=== PATIENT | male | born 1950 | race Caucasian/White ===

== ENCOUNTER → 2019-11-08 | Outpatient (CLI) | payer OTHER ==
[2019-11-08 14:58] LABS: Basophils % (A) 0 %; Eosinophils # (A) 0.5 k/uL (0-0.7); Eosinophils % (A) 6 %; HCT 44.2 % (39.0-53.0); HGB 15.1 gm/dL (13.0-17.5); Lymphocytes # (A) 1.8 k/uL (1.0-4.8); Lymphocytes % (A) 22 %; MCH 32.6 pg (25.0-35.0); MCHC 34.2 g/dL (31.0-37.0); MCV 95.2 fL (80.0-100.0); Mean Platelet Volume 8.7; Monocytes # (A) 0.4 k/uL (0-1.0); Monocytes % (A) 5 %; Neutrophils # (A) 5.5 k/uL (1.3-7.7); Neutrophils % (A) 66 %; Platelet Count 275 k/uL (150-450); RBC 4.64 m/uL (4.30-5.90); RDW 12.6 % (11.5-15.5); WBC 8.4 k/uL (3.8-10.6)
[2019-11-08 15:52] LABS: Erythrocyte Sedimentation Rate 8 mm/hr (0-15)
== END | disposition home or self-care (01) ==
LOC: LABWHC1 13:23
PROVIDERS: ATTEND Ophthalmology
DX: G45.3 Amaurosis fugax (principal)
CPT/HCPCS: 36415; 85025; 85652; 86140

== ENCOUNTER → 2024-01-30 | Outpatient (CLI) | payer OTHER ==
[2024-01-30 13:55] LABS: African American GFR (CKD) 64 (>60 ml/min/1.73 sqM); Blood Urea Nitrogen 21 mg/dL (9-20); Non-African American GFR(CKD) 55 (>60 ml/min/1.73 sqM)
--- NOTE | 2024-01-30 21:34 | CT ---
EXAMINATION TYPE: CT angio neck DATE OF EXAM: 01/30/2024 4:54 PM CLINICAL INDICATION:Male, 73 years old with history of I65.23 OCCLUSION AND STENOSIS OF BILATERAL CAR OTID; left carotid stenosis from radiation therapy COMPARISON: None TECHNIQUE: Axially acquired helical CT Angiogram of the Neck was obtained with and without contrast. Axial images are supplemented with coronal and sagittal MIP reconstructions. 3D reconstructions were also performed and were post-processed at an independent workstation. Estimated carotid stenosis was calculated using the NASCET criteria. CT DLP: 342.7 mGycm, Automated exposure control for dose reduction was used. Contrast used:65 mL of Isovue 370 with IV Contrast, Oral contrast used: , None. FINDINGS: CTA NECK: Right Carotid System: There is occlusion of the right common carotid artery at the origin with reconstitution upstream. The re is a diminutive caliber of the right common carotid artery. Right internal carotid artery is dimin utive in size and small caliber. Left carotid System: Left common carotid artery is patent. There is no significant stenosis at the bifurcation. Just after the bifurcation the internal carotid artery and straight greater than 70% stenosis which extends jeff roximately 11 mm in length where it gradually widens to normal caliber. The remainder of the internal carotid artery and the left is patent. Vertebral arteries are patent without evidence hemodynamically significant stenosis. There is slight dominance of the left vertebral artery compared to the right. There is a three-vessel aortic arch. The origins of the great vessels are patent. No evidence of hemo dynamically significant stenosis. Upper thorax: IMPRESSION: 1. Occlusion of the right common carotid artery at its origin with a diminutive suspected back fill of contrast through the [place]. Correlate with Doppler ultrasound. 2. Greater than 70% stenosis of the proximal left internal carotid artery.
== END | disposition home or self-care (01) ==
LOC: RADCTMAIN 13:11
PROVIDERS: ATTEND Surgery
DX: I65.23 Occlusion and stenosis of bilateral carotid arteries (principal)
CPT/HCPCS: 82565; 84520; 70498; 36415; Q9967

== ENCOUNTER 2024-03-24 05:38 | Inpatient (IN) | payer OTHER ==
[2024-03-24] MEDS ORDERED: CLOPIDOGREL 75 MG TAB PO PRN (05:57)
[2024-03-24] MEDS ORDERED: NITROGLYCERIN SL TABS 0.4 MG TAB SUBLINGUAL PRN (05:57)
[2024-03-24] MEDS: SODIUM CHLORIDE 0.9% 1,000 ML IV ONE ×2 (06:20→09:08)
[2024-03-24 06:42] LABS: Basophils % (A) 0 %; Eosinophils # (A) 0.7 k/uL (0-0.7); Eosinophils % (A) 8 %; HCT 44.9 % (39.0-53.0); HGB 14.7 gm/dL (13.0-17.5); Lymphocytes # (A) 1.8 k/uL (1.0-4.8); Lymphocytes % (A) 18 %; MCH 32.3 pg (25.0-35.0); MCHC 32.9 g/dL (31.0-37.0); MCV 98.4 fL (80.0-100.0); Mean Platelet Volume 8.1; Monocytes # (A) 0.6 k/uL (0-1.0); Monocytes % (A) 7 %; Neutrophils # (A) 6.2 k/uL (1.3-7.7); Neutrophils % (A) 65 %; Platelet Count 322 k/uL (150-450); RBC 4.56 m/uL (4.30-5.90); WBC 9.7 k/uL (3.8-10.6)
[2024-03-24 06:51] LABS: African American GFR (CKD) 62 (>60 ml/min/1.73 sqM); Anion Gap 7 mmol/L; Blood Urea Nitrogen 19 mg/dL (9-20); Calcium 9.7 mg/dL (8.4-10.2); Carbon Dioxide 27 mmol/L (22-30); Chloride 105 mmol/L (98-107); Glucose 110 mg/dL (74-99); Non-African American GFR(CKD) 54 (>60 ml/min/1.73 sqM); Potassium 4.1 mmol/L (3.5-5.1); Sodium 139 mmol/L (137-145)
[2024-03-24] MEDS ORDERED: ASPIRIN 81 MG PO PRN (07:00)
[2024-03-24] MEDS ORDERED: HYDROmorphone 0.5 MG/0.5 ML SYRINGE IVP PRN (07:00)
[2024-03-24] MEDS ORDERED: LIDOCAINE 1% INJ 10MG/ML (20 ML MDV) ONE (07:48)
[2024-03-24] MEDS: THROMBIN (BOVINE) 5,000 UNIT VIAL MISCELLANE ONE (08:11)
[2024-03-24] MEDS: LIDOCAINE 1% INJ 10MG/ML (20 ML MDV) SQ ONE (08:11)
[2024-03-24] MEDS: ceFAZolin 2 GM in SODIUM CHLORIDE 0.9% 500 ML 500 ML IRRIGATION PRN (08:20)
[2024-03-24] MEDS: HEPARIN SODIUM,PORCINE 10,000 UNIT in SODIUM CHLORIDE 0.9% 1,000 ML IRRIGATION ONE (08:21)
[2024-03-24] MEDS: IOPAMIDOL-250 100ML BTL INTRAARTER ONE (08:55)
[2024-03-24] MEDS ORDERED: RX INFO: IV CONTRAST WAS GIVEN 1 EACH MISC MISCELLANE PRN (09:00)
[2024-03-24] MEDS ORDERED: ATROPINE SULFATE 0.1 MG/ML 10ML SYRINGE IV PRN (09:15)
[2024-03-24] MEDS ORDERED: MAG HYDROX/AL HYDROX/SIMETH 30 ML CUP PO PRN (09:15)
--- NOTE | 2024-03-24 09:15 | P.OP ---
Date of Procedure: 03/24/24 Description of Procedure: Preoperative diagnosis: High-grade left internal carotid artery stenosis, previous head and neck radiation Postoperative diagnosis: Same Procedure: Left transcarotid artery revascularization with stenting. Right common femoral vein central venous catheter placement under ultrasound guidance Surgeon: Remedios Ann DO [employer] Therapist: Toney Jones Anesthesia: Conscious sedation Complications: None Condition: Stable Flow reversal time: 7 minutes Lesion length: 20 mm Indication for procedure: Patient is a 73-year-old male with high-grade left internal carotid artery occlusion, previous neck radiation as well as contralateral occlusion who presents for transcarotid artery stenting. Operative narrative: After written and informed consent was obtained the patient risks benefits and competitions were described the patient was brought to the [facility] and laid in a supine position. The area of the neck and groins were prepped and draped in usual sterile fashion after appropriate anesthetic was performed per the anesthesiologist. A timeout was performed in normal fashion and antibiotics were administered prior to incision. Utilizing ultrasound the left common carotid artery was located and a transverse incision was created overlying this area after proper anesthetization. Dissection was carried between the sternocleidomastoid musculature down to the carotid sheath. The sheath was then incised and the common carotid artery was located and dissected free in a circumferential manner and controlled with umbilical tape. Once controlled, attention was placed down to the common femoral vein and utilizing ultrasound the vein was cannulated and the 8-Bangladeshi sheath was placed in normal fashion. Attention was then placed back to the carotid artery and the patient was administered heparin and followed with ACTs and redosed as needed for ACT above 250. A pursestring suture was then placed at the common carotid artery with 5-0 Prolene and utilizing a micropuncture needle the common carotid artery was accessed and wire was placed followed by a 4-Bangladeshi sheath. Carotid angiogram was then obtained demonstrating significant stenosis in the internal carotid artery. Stiff wire was then placed followed by the 8 [place] sheath. Flow reversal was then established with the enroute PROBATE PARALEGAL system after patient's blood pressure was increased to above 160, heart rate above 60 and ACT above 250. 014 wire was then placed across the lesion followed by a 5x30 mm Sapp balloon and balloon angioplasty was performed followed by an 8x40 mm [place] stent. Postdilatation was not performed and final angiogram was obtained demonstrating complete resolution of the stenosis. All guidewires and catheters were removed and the sheath was removed and the arteriotomy was secured with the previously placed pursestring suture. Hemostasis was assured with Gelfoam and thrombin. The area was irrigated and closed. The platysma was closed with 3-0 Vicryl. The skin was closed with running 4-0 Monocryl in subcuticular fashionThe femoral sheath was also removed and pressure was held for hemostasis. The patient all procedure well and was moving all extremities and following commands. The patient was then sent to PACU for recovery.
[2024-03-24] MEDS: PHENYLEPHRINE-0.9% NACL SYG 1,000 MCG/10 ML SYRINGE IVP ONE (09:25)
[2024-03-24] MEDS: ALBUMIN HUMAN 5% (12.5gm) 250 ML BOTTLE IVPB ONE ×2 (09:48→10:44)
[2024-03-24] MEDS ORDERED: LORazepam 1 MG TAB PO PRN ×3 (12:51)
[2024-03-24] MEDS ORDERED: LORazepam 0.5 MG TAB PO PRN (12:51)
--- NOTE | 2024-03-24 13:02 | IR ---
EXAMINATION TYPE: IR stent intravas non coronary DATE OF EXAM: 03/24/2024 FLUOROSCOPY left carotid stent, 2.2min fluoro, 5.37Fmsg6. 127 images submitted.
--- NOTE | 2024-03-24 15:22 | P.CONS ---
History of Present Illness - Reason for Consult Consult date: 03/24/24 HTN Requesting physician: Remedios Ann - History of Present Illness Patient is a 73-year-old male with history of hypertension, carotid artery disease, and dyslipidemia who presented for left transcarotid artery revascularization with stenting. He tolerated the procedure well without any immediate postoperative complications. Patient seen and examined at bedside. He currently feels slightly lightheaded. He denies any chest pain, shortness of breath, nausea, vomiting. He denies any recent cough, cold, fever, flu. He has no other complaints currently. Vital signs reviewed General: nontoxic, no distress, appears at stated age Derm: warm, dry Eyes: EOMI, no lid lag, anicteric sclera ENT: Nose and ears atraumatic, dressing in place over left neck Cardiovascular: S1S2 reg, no murmur, no edema Lungs: clear to auscultation bilateral, no rhonchi, no rales, no wheeze, no accessory muscle use Abdominal: soft, nontender to palpation, no guarding Ext: no gross muscle atrophy, no contractures Neuro: CN II-XII grossly intact, No focal neuro deficits Psych: Alert, oriented, appropriate affect Assessment/Plan: 73-year-old male status post TCAR Carotid arterial disease -Aspirin 81 mg daily, Plavix 75 mg daily -Resume patient's Lipitor 80 mg daily Hypertension -Blood pressure parameters 1 30-1 80 systolic. Patient is currently within those parameters. Will continue to monitor. Resume lisinopril 20 mg daily in AM. If blood pressure elevates would give dose now. ETOH use - patient states he only drinks a few times a month - will monitor closely for signs of withdrawal - Ativan PO with dosing per CIWA scale, monitor for sedation - Thiamine 100 mg daily - Folic acid 1 mg daily Imaging: None new Data Review: Preoperative blood work reviewed CBC and basic metabolic profile which show a creatinine of 1.3 (1.26 1-month earlier) Thank you for allowing us to participate in the care of this pleasant patient. Do not hesitate to contact us with questions. Someone can be reached from the [facility] hospitalist group all hours of the day at [phone] or via [employer]. This dictation was prepared using On[employer] voice recognition software. Though every attempt is made to correct errors during dictation some may still exist. Past Medical History Past Medical History: Cancer, Eye Disorder, Hyperlipidemia, Hypertension Additional Past Medical History / Comment(s): carotid stenosis History of Any Multi-Drug Resistant Organisms: None Reported Past Surgical History: Hernia Repair Additional Past Surgical History / Comment(s): neck surgery, cut out cancer, cataracts 2021, colonscopy 01/2024, Past Anesthesia/Blood Transfusion Reactions: No Reported Reaction Smoking Status: Former smoker Past Alcohol Use History: Occasional - Past Family History Father Family Medical History: Neurologic Disorder Mother Family Medical History: Cancer Medications and Allergies Home Medications Medication Instructions Recorded Confirmed Type Aspirin 81 mg PO DAILY 03/22/24 03/24/24 History Atorvastatin [Lipitor] 80 mg PO DAILY 03/22/24 03/24/24 History Cholecalciferol (Vitamin D3) 50 mcg PO DAILY 03/22/24 03/24/24 History [Vitamin D3 (50 Mcg = 2000 Iu)] Clopidogrel Bisulfate [Clopidogrel] 75 mg PO DAILY 03/22/24 03/24/24 History Unk Multi Vitamin 1 tab PO DAILY 03/22/24 03/24/24 History lisinopriL [Lisinopril] 20 mg PO DAILY 03/22/24 03/24/24 History Allergies Allergy/AdvReac Type Severity Reaction Status Date / Time No Known Allergies Allergy Verified 03/24/24 06:12 Physical Exam Osteopathic Statement: *. No significant issues noted on an osteopathic structural exam other than those noted in the History and Physical/Consult. Vitals: Vital Signs Temp Pulse Pulse Pulse Resp BP BP 03/24/24 13:47 71 16 141/67 03/24/24 13:00 69 16 138/65 03/24/24 12:00 60 16 120/52 03/24/24 11:30 73 16 136/60 03/24/24 11:15 78 16 144/60 03/24/24 11:00 67 16 132/55 03/24/24 10:45 70 16 133/57 03/24/24 10:30 65 16 130/53 03/24/24 10:15 69 16 122/47 03/24/24 10:00 62 16 124/59 03/24/24 09:45 65 16 116/50 03/24/24 09:30 77 16 119/50 03/24/24 09:22 97.7 F 72 16 147/65 04/24/24 06:10 97.8 F 75 18 149/72 156/74 Pulse Ox 03/24/24 13:47 98 03/24/24 13:00 98 03/24/24 12:00 98 03/24/24 11:30 98 03/24/24 11:15 98 03/24/24 11:00 98 03/24/24 10:45 98 03/24/24 10:30 98 03/24/24 10:15 98 03/24/24 10:00 97 03/24/24 09:45 97 03/24/24 09:30 95 03/24/24 09:22 96 03/24/24 06:10 95 Intake and Output 03/24/24 03/24/24 03/24/24 06:59 14:59 22:59 Intake Total 500 1202 Balance 500 1202 Intake: IV 500 1202 Other: # Voids 1 Weight 81.8 kg 81.8 kg Results CBC & Chem 7: 03/24/24 06:15 03/24/24 06:15 Labs: Abnormal Lab Results - Last 24 Hours (Table) 03/24/24 Range/Units 06:15 Creatinine 1.30 H (0.66-1.25) mg/dL Glucose 110 H (74-99) mg/dL
[2024-03-24] MEDS: LACTATED RINGERS 1,000 ML IV SCH (20:48)
[2024-03-24] MEDS ORDERED: ATORVASTATIN 40 MG TAB PO SCH (21:00)
[2024-03-25 01:48] VITALS: RESP 16
[2024-03-25] MEDS: SODIUM CHLORIDE 0.9% 500 ML 500 ML IV ONE (05:57)
[2024-03-25] MEDS: SODIUM CHLORIDE 0.9% 1,000 ML in EMPTY BAG 1 BAG IV ONE (07:48)
[2024-03-25] MEDS: ONDANSETRON 4 MG/2 ML VIAL IVP ONE (07:49)
[2024-03-25] MEDS: FOLIC ACID 1 MG TAB PO SCH (08:02)
[2024-03-25] MEDS: CLOPIDOGREL 75 MG TAB PO SCH (08:02)
[2024-03-25] MEDS: ASPIRIN 81 MG PO SCH (08:02)
[2024-03-25] MEDS: ATORVASTATIN 80 MG TAB PO SCH (08:02)
[2024-03-25] MEDS: THIAMINE 100 MG TAB PO SCH (08:02)
[2024-03-25] MEDS: MULTIVITAMINS, THERA 1 EACH TAB PO SCH (08:02)
--- NOTE | 2024-03-25 08:54 | P.DS ---
Providers Date of admission: 03/24/24 05:38 Expected date of discharge: 03/25/24 Attending physician: Remedios Ann DO Consults: 03/24/24 09:16 Consult Physician Routine Consulting Provider: Pili Mckinney Consult Reason/Comments: post carotid stent, current etoh Do you want consulting provider notified?: Yes Primary care physician: [facility] Course: 73-year-old male with high-grade left internal carotid artery occlusion, previous neck radiation as well as contralateral occlusion who was scheduled for a left transcarotid artery stent. Patient is postop day #1 for left transcarotid artery revascularization. He has been up and ambulating. He is voiding without difficulty. He is on a heart healthy diet without any difficulty with swallowing. Denies any pain. Denies any focal deficits. talk incision well-approximated, no ecchymosis or hematoma noted. Right groin access site with small area of ecchymosis without any hematoma or bleeding noted. Patient has been afebrile. Vital signs including blood pressure have been stable. Exam General appearance: The patient is alert, oriented, appears in no acute distress. HET: Head is normocephalic and atraumatic. Pupils are equal and reactive. Neck: Supple. Left side of neck incision well-approximated without any bleeding, bruising or hematoma noted. Heart: Regular. Lungs: Equal expansion, normal respiratory effort. Abdomen: Soft, nontender, nondistended. Extremities: Normal skin color and turgor. Groin access site with small area of ecchymosis, no bleeding or hematoma noted. Neurological: No focal deficits. Strength and sensation are grossly intact. Assessment 1. High-grade left internal carotid artery occlusion status post transcarotid artery revascularization with stent 2. Hypertension 3. EtOH use Plan Patient to continue Plavix 75 mg daily, aspirin 81 mg daily, and atorvastatin 80 mg daily. Appreciate recommendations from medical team lisinopril. Encourage ambulation. Discharge instructions reviewed with patient. Await clearance from medicine for discharge home with plan for discharge this afternoon. Avoid alcohol use. The impression and plan of care has been dictated as directed. Dr. Ann I performed a history and examination of this patient, discussed the same with the dictator. I agree with the dictator's note ,documented as a scribe. Any ad ditional findings or plans will be noted. Procedures: Procedure: Left transcarotid artery revascularization with stenting. Right common femoral vein central venous catheter placement under ultrasound guidance Surgeon: Remedios Ann DO Patient Condition at Discharge: Stable Plan - Discharge Summary Discharge Rx Participant: No New Discharge Prescriptions: Continue Cholecalciferol (Vitamin D3) [Vitamin D3 (50 Mcg = 2000 Iu)] 50 mcg PO DAILY Aspirin 81 mg PO DAILY Unk Multi Vitamin 1 tab PO DAILY lisinopriL [Prinivil] 20 mg PO DAILY Clopidogrel Bisulfate [Clopidogrel] 75 mg PO DAILY Atorvastatin [Lipitor] 80 mg PO DAILY Discharge Medication List Aspirin 81 mg PO DAILY 03/22/24 [History] Atorvastatin [Lipitor] 80 mg PO DAILY 03/22/24 [History] Cholecalciferol (Vitamin D3) [Vitamin D3 (50 Mcg = 2000 Iu)] 50 mcg PO DAILY 03/22/24 [History] Clopidogrel Bisulfate [Clopidogrel] 75 mg PO DAILY 03/22/24 [History] Unk Multi Vitamin 1 tab PO DAILY 03/22/24 [History] lisinopriL [Prinivil] 20 mg PO DAILY 03/22/24 [History] Follow up Appointment(s)/Referral(s): [facility],Clinic [Primary Care Provider] - 1 Week Remedios Ann DO [STAFF PHYSICIAN] - 2 Weeks Activity/Diet/Wound Care/Special Instructions: No strenuous activity or heavy lifting greater than 10 pounds. May shower tomorrow 03/26/24 but no tub bathing or soaking. Monitor right groin for bleeding, apply pressure and if it does not resolve, have someone drive you to the emergency room. Watch incision site for infection including redness, drainage, or temperature greater than 100.4. If you notice these symptoms please call office. Avoid alcohol use. Discharge Disposition: HOME SELF-CARE
--- NOTE | 2024-03-25 09:58 | P.PN ---
Subjective Progress Note Date: 03/25/24 Hospital course: Patient is a very pleasant 73-year-old male with a past medical history of hypertension, carotid artery disease, and dyslipidemia who presented for left transcarotid artery revascularization with stenting. He tolerated the procedure well without any immediate postoperative complications. Physical exam: Patient seen and fully evaluated at bedside this morning. He reports feeling great and ready to go home. He denies having any pain or complaints at this time. Vital signs stable. Had long discussion with patient regarding holding current blood pressure medication and following his blood pressures closely at home. Patient is cleared from medical perspective for discharge. Vital signs reviewed and stable. General: Nontoxic, no distress and appears stated age. Derm: Skin warm and dry, normal coloration for ethnicity. Head: Atraumatic, normocephalic and symmetric. Eyes: EOMs intact, no lid lag, and anicteric sclera Mouth: no lip lesions, mucus membranes moist Cardiovascular: regular rate and rhythm with normal S1S2, no murmur noted, positive posterior tibial pulses bilaterally, and cap refill < 2 seconds. Lungs: Respirations even, regular, and unlabored on room air. Lungs CTA bilaterally, no rhonchi, no rales, no wheezing, and no accessory muscle usage. Abdominal: soft, nontender to palpation, no guarding, no appreciable organomegaly Ext: ROM intact. No gross muscle atrophy, no edema, no contractures Neuro: Speech clear, face symmetrical and CN II-XII grossly intact with no noted focal neuro deficits Psych: Alert and oriented to person, place, time, and situation. Appropriate and pleasant affect. Assessment and Plan of Care: 73-year-old male status post Left TCAR Carotid arterial disease -Aspirin 81 mg daily, Plavix 75 mg daily -Resume patient's Lipitor 80 mg daily Hypertension -Lisinopril was held secondary to lower blood pressures. Discussed with vascular surgery and had long talk with patient at bedside and recommending continuing to hold lisinopril and monitoring his blood pressure closely at home twice daily. Patient was instructed and written instructions were placed in discharge to that if systolic blood pressure is greater than 120 it is okay to resume lisinopril 20 mg daily, however if pressures continue to be less than 120 systolic recommend continuing to hold this medication until further advised at follow-up appointment. ETOH use - patient states he only drinks a few times a month - will monitor closely for signs of withdrawal - Ativan PO with dosing per CIWA scale, monitor for sedation - Thiamine 100 mg daily - Folic acid 1 mg daily Imaging: None new Data Review: Laboratory analysis,: Morning labs pending. Vital signs reviewed. Blood pressure 107/56, heart rate 65, respiratory rate 16, temp 98.0 F, and SpO2 of 93% on room air. Thank you for allowing us to participate in the care of this pleasant patient. Do not hesitate to contact us with questions. Someone can be reached from the [facility] hospitalist group all hours of the day at [phone] or via [employer]. Patient was seen independently by Nurse Pracitioner. This document was prepared using [employer] dictation software. Please allow for errors in cellar pumper, while rare they do occur. I reviewed the documentation as provided by the CARLOS above, who is the original author of this note. I agree with the documented assessment and plan, with the following changes: none Objective - Vital Signs Vital signs: Vital Signs Temp 98 F 03/25/24 04:00 Pulse 65 03/25/24 04:00 Resp 16 03/25/24 04:00 BP 122/71 03/25/24 06:14 Pulse Ox 93 L 03/25/24 04:00 FiO2 Intake & Output 03/24/24 03/25/24 03/25/24 18:59 06:59 18:59 Intake Total 1442 540 Balance 1442 540 Weight 81.8 kg Intake: IV 1202 Oral 240 540 Other: Voiding Method Toilet # Voids 1 1 - Labs CBC & Chem 7: 03/24/24 06:15 03/24/24 06:15
[2024-03-25 11:44] VITALS: BP 122/70; PULSE 82; TEMP 98
== END 2024-03-25 11:20 | disposition home or self-care (01) | DRG 36 ==
LOC: 2ORMAIN 05:38 → 3SCARD 13:34
PROVIDERS: ADMIT Surgery; ATTEND Surgery
PROC: 037L34Z Dilation of Left Internal Carotid Artery with Drug-eluting Intraluminal Device, Percutaneous Approach (ICD-10-PCS; principal; 2024-03-24 07:30)
DX: I65.22 Occlusion and stenosis of left carotid artery (principal); I10 Essential (primary) hypertension; E78.5 Hyperlipidemia, unspecified; F10.90 Alcohol use, unspecified, uncomplicated; Z92.3 Personal history of irradiation; Z87.891 Personal history of nicotine dependence; Z85.89 Personal history of malignant neoplasm of other organs and systems; Z79.02 Long term (current) use of antithrombotics/antiplatelets; Z79.82 Long term (current) use of aspirin; Z79.899 Other long term (current) drug therapy
CPT/HCPCS: 37215; 80048; 85025; 86850; 86900; 86901